=== PATIENT | male | born 1955 | race Caucasian/White ===

== ENCOUNTER 2024-05-23 13:54 | Emergency (ER) | payer MEDICAID, SELFPAY ==
[2024-05-23 13:55] VITALS: BMI 28.3
[2024-05-23 13:57] VITALS: BP 95/60
[2024-05-23 13:58] VITALS: BP 112/61
[2024-05-23 14:00] VITALS: BP 112/61
[2024-05-23] MEDS: NSS 1000 IV (14:04)
[2024-05-23 14:18] LABS: % Basophils 0.5 % (0-2); % Eosinophils 1.2 % (0-6); % Immature Granulocytes 0.8 % (0-0.5); % Lymphocytes 25.3 % (20.5-51.1); % Monocytes 7.8 % (1.7-9.3); % Neutrophils 64.4 % (42.2-75.2); Absolute Eosinophils 0.1 10^3/uL (0-0.7); Absolute Immature Granulocytes 0.1 10^3/uL (0-0.05); Absolute Lymphocytes 1.6 10^3/uL (1.2-3.4); Absolute Monocytes 0.5 10^3/uL (0.1-0.6); Absolute Neutrophils 4.2 10^3/uL (1.4-6.5); Hematocrit 41.1 % (39.0-52.0); Hemoglobin 14.3 g/dL (13.0-18.0); Mean Corp Hgb Conc. 34.8 g/dL (33.0-37.0); Nucleated Red Blood Cells % 0 % (-); Platelet Count 212 10^3/uL (130-400); Red Blood Cell Count 4.62 10^6/uL (4.70-6.10); Red Cell Dist. Width 12.2 % (11.5-14.5); White Blood Cell Count 6.4 10^3/uL (4.8-10.8)
--- NOTE | 2024-05-23 14:31 | ED.GENMED ---
History of Present Illness
General
Chief Complaint: Fainting/Passed Out
Source: patient and family
Time Seen by Provider: 05/23/24 14:02
History of Present Illness
History of Present Illness:
This patient is a 68-year-old male who presents emergency department after a syncopal episode that was short-lived. The patient exercises regularly and is part of his routine to go to the gym every weekend. He awoke feeling his usual self and
worked out at the gym including swimming without any symptoms and feeling well. Then, he went into the [facility] followed by a dry sauna where he started to complain that he felt too hot. He left the sauna took a shower and when he came out and was
in the changing room area he was complaining of feeling lightheaded and hot. His [id number]-[id number] who is with him says that he started to drift off and fall to the side and he caught him. The syncopal event lasted about a minute. Medics were called
and upon their arrival his systolic blood pressure was reportedly 90. Since arrival here in the emergency department, patient is asymptomatic and feels well. He denies experiencing chest pain or pressure, palpitations, headache, neck pain,
numbness, focal weakness, abdominal pain, visual changes, or other complaints. Patient had a similar event many years ago when he was outside and it was too hot.
Past History
Past History
ED Past Medical History: Other (Reflux, BPH, hypercholesterolemia, borderline diabetes)
ED Past Surgical History: None
Social History
Tobacco: Non-smoker
Alcohol: None
Drug: None
Living: with family
Phy Exam
Physical Exam
Physical Exam:
GENERAL: Alert , in no apparent distress
EYE: pupils equal and reactive
NECK: Supple, no significant adenopathy.
ENT: o/p clr, mmm.
CARDIAC: Regular rate and rhythm .
LUNGS: Clear breath sounds bilaterally, no acute respiratory distress, no wheezes/rales/rhonchi
ABDOMEN: Soft, without focal tenderness, no r/g, no cvat
NEUROLOGICAL: Alert and oriented, no focal neuro deficits, motor 5 out of 5, sensory intact, tantgh-lp-cwut normal, cranial nerves II through XII intact
SKIN: Warm and dry, skin intact.
MUSCULOSKELETAL: No edema, well perfused.
PSYCH: Normal and appropriate interaction.
Course
Orders/Labs/Results
Orders:
Orders
05/23/24 13:56
EKG [Electrocardiogram (*1)] Urgent
Reason for Study: Syncope
EKG- Treatment ONCE
05/23/24 14:03
0.9% Sodium Chloride 1000 ml [Nss] 1,000 ml IV BOLUS
05/23/24 14:06
Complete Blood Count/With Diff Urgent
05/23/24 15:13
Comprehensive Metabolic Panel Urgent
Abnormal Lab Results
05/23/24
14:06
RBC 4.62 L 10^6/uL
(4.70-6.10)
Abs Immat Gran (auto) 0.1 H 10^3/uL
(0-0.05)
Immature Gran % 0.8 H %
(0-0.5)
05/23/24 14:06
Vital Signs
Initial and Last Documented VS:
Initial Vital Signs
BP
95/60
05/23/24 13:57
Last Documented Vital Signs
Temp Pulse Resp BP Pulse Ox
97.5 F 73 15 112/61 94
05/23/24 13:58 05/23/24 14:00 05/23/24 14:00 05/23/24 14:00 05/23/24 14:00
*Critical Care Note
Total Time (30-74mins, 75-104mins- exclusive of procedures): Not Applicable
Update Note
Update Note:
Patient presents to the Emergency Department with syncope
Number and Complexity of Problems Addressed at the Encounter
� Chronic conditions affecting care:
� Acute Exacerbation and/or Progression of Chronic Illness:
� Differential Diagnosis includes: But not limited to dehydration, vagal events, arrhythmia, etc. etc.
Amount and/or Complexity of Data to be Reviewed and Analyzed
� I performed an independent evaluation of and my interpretation is:
EKG: Read by me, normal sinus rhythm, no acute ischemia noted
CT:
Xrays:
Laboratory Studies:cbc wnl
Other:
� Review of other/old records reveals:
� Clinical information was obtained by an independent historian: [id number] grandson and daughter who are all bedside and served as preparer making department at patient request
� Prescriptions/Medications Considered but not given:
� Further testing considered but not performed:
Risk of Complications and/or Morbidity or Mortality of Patient Management
� Social determinants of health affecting care:
� Discussion with other providers (PCP, Hospitalists, Consultants, etc):
� Escalation of care including admission/observation vs risk of discharge considered: 328 pm. Pt remains asx and well appearing. bmp has hemolyzed twice, and they are not agreeable to a redraw, especially given how well he
feels. D/w pt import of fu and reasons to rted. Suspect vasovagal event given hx, phys, lack of findings to suggest more worrisome event.
ED Attending Note
-
Portions of this chart may have been created with voice recognition software.� Occasional wrong word or��sound alike� substitutions may have occurred due to the inherent limitations of voice recognition software.
Discharge Plan
Departure
Patient Disposition: Home (Routine Discharge)
Date of Disposition: 05/23/24
Time of Disposition: 15:29
Patient with high blood pressure during this ER visit?: No
Condition: Good
Discharge Problem:
Syncope
Instructions: Syncope (Fainting) (DC)
Referrals:
Lucho Jiménez, DO [Family Provider] - Follow up in 2-3 days
Activity Restrictions/Additional Instructions:
IF YOU DEVELOP DIZZINESS, PASS OUT, CHEST PAIN, TROUBLE BREATHING, CHEST PAIN, NUMBNESS, WEAKNESS, SEVERE HEADACHE OR OTHER WORRISOME SIGNS, GO TO THE ER IMMEDIATELY!
Interventions
Interventions:
*Risk Screen - Suicide Last Done: 05/23/24 14:01
*General Assessment Last Done: 05/23/24 14:01
*Neglect/Abuse Screening Last Done: 05/23/24 14:01
ED- Fall Risk Assessment Last Done: 05/23/24 15:29
*ED COVID-19 Vaccine History Last Done: 05/23/24 14:01
ED- Cardiac Assessment Last Done: 05/23/24 14:02
ED- Neurological Assessment Last Done: 05/23/24 14:02
Discharge Date and Time
Print Language: TANZANIAN
[2024-05-23 15:00] VITALS: BP 121/68
== END 2024-05-23 15:40 | disposition home or self-care (01) ==
LOC: EMR 13:54
PROVIDERS: Emergency Medicine; EMERGENCY PHYSICIAN Emergency Medicine; FAMILY PHYSICIAN Family Medicine
DX: R55 Syncope and collapse (principal)
CPT/HCPCS: 99284; 96360; 85025; 93005